=== PATIENT | male | born 2005 | race Caucasian/White ===

== ENCOUNTER → 2025-01-24 08:16 | Outpatient (REF) | payer BC, SELFPAY | LOC: EMG 08:16 | PROVIDERS: ATTENDING PHYSICIAN Student in an Organized Health Care Education/Training Program; FAMILY PHYSICIAN Internal Medicine | DX: M25.511 Pain in right shoulder (principal); R20.0 Anesthesia of skin | CPT/HCPCS: 95886; 95910 ==